=== PATIENT | female | born 1990 | race Caucasian/White ===

== ENCOUNTER 2016-06-29 19:32 | Emergency (ER) | payer OTHER ==
[~2016-06-29] VITALS: Ht 167.6 cm; Wt 87.1 kg
[2016-06-29] MEDS ORDERED: ACET300T52 PO (19:51)
[2016-06-29] MEDS ORDERED: dexameTHASONE 20 MG/5 ML VIAL (J1100) IV ONE ×2 (20:45)
[2016-06-29] MEDS ORDERED: KETOROLAC 30 MG/ML VIAL (J1885) IV ONE (20:45)
[2016-06-29] MEDS ORDERED: KETO10TAB PO (21:59)
[2016-06-29 22:08] VITALS: BP 119/63
== END 2016-06-29 22:12 | disposition home or self-care (01) ==
LOC: M ED 21:54
DX: G44.209 Tension-type headache, unspecified, not intractable (principal)